=== PATIENT | male | born 1960 | race Asian ===

== ENCOUNTER 2024-11-04 19:05 | Emergency (ER) | payer SELFPAY ==
[~2024-11-04] VITALS: Ht 165.1 cm; Wt 72.7 kg
[~2024-11-04 19:05] MED LIST: BP MEDS; TICA90TA PO
[2024-11-04 19:35] VITALS: BP 143/53; PULSE 72; RESP 14; TEMP 98.4; O2SAT 99
[2024-11-04] MEDS ORDERED: PERTUSS(ACELL),DIPH,TET/PF 0.5 ML SYRINGE [ADULT] IM. ONE (21:30)
[2024-11-04] MEDS ORDERED: AMOX TR/POT CLAV 875 MG/125 MG TABLET PO ONE (21:30)
[2024-11-04] MEDS ORDERED: BACITRACIN 0.9 GM PACKET OINTMENT TP ONE (21:30)
[2024-11-04] MEDS ORDERED: AMOX-457 PO (21:53)
== END 2024-11-04 22:20 | disposition home or self-care (01) ==
LOC: EDUNIT# 19:05 → EMS 19:15
DX: S61.052A Open bite of left thumb without damage to nail, initial encounter (principal); I25.2 Old myocardial infarction; W54.0XXA Bitten by dog, initial encounter; Y93.89 Activity, other specified; Y92.89 Other specified places as the place of occurrence of the external cause; Y99.8 Other external cause status
CPT/HCPCS: 99283; Z7502